=== PATIENT | male | born 1965 | race Caucasian/White ===

== ENCOUNTER → 2020-12-25 14:48 | Outpatient (CLI) | payer OTHER, MEDICAID, SELFPAY | PROVIDERS: Visit Provider Physician Assistant | DX: R31.9 Hematuria, unspecified (principal) | CPT/HCPCS: 81002; 87077; 87086; 87186 ==

== ENCOUNTER 2021-05-23 18:51 | Emergency (ER) | payer OTHER, MEDICAID, SELFPAY ==
[2021-05-23 19:01] VITALS: BP 182/104; PULSE 96; RESP 16; TEMP 37.2; O2SAT 96; BMI 25.8
--- NOTE | 2021-05-23 19:43 | PC.NURSE ---
Addendum entered by Mohini Smith R.N. 05/23/21 19:44: took the can and explained not to drink or eat while he is waiting. Original Note: pt opened a can of dr torres while waiting on lab to come.
[2021-05-23 20:02] LABS: Add Manual Diff / Slide Review NO; Basophils Absolute Auto 0 /uL (0-100); Basophils Percent Auto 0.5 % (0-2); Eosinophils Absolute Auto 300 /uL (0-450); Eosinophils Percent Auto 3.8 % (2-4); Hematocrit 46.8 % (41-53); Hemoglobin 16.2 g/dL (13.5-17.5); Lymphocytes Absolute Auto 1600 /uL (1100-4500); Lymphocytes Percent Auto 24.1 % (25-40); Mean Corpuscular HGB Conc 34.5 % (30-36); Mean Corpuscular Hemoglobin 31.6 PG (26-34); Mean Corpuscular Volume 91.6 fL (80-100); Monocytes Absolute Auto 500 /uL (0-900); Monocytes Percent Auto 7.1 % (3-14); Neutrophils Absolute Auto 4300 /uL (1500-7000); Neutrophils Percent Auto 64.5 % (50-75); Platelet Count 225 X10^3/uL (150-400); Red Blood Cell Count 5.11 X10^6/uL (4.5-5.9); Red Cell Distribution Width 12.5 % (11.6-14.8); White Blood Cell Count 6.7 X10^3/uL (4.5-11.0)
[2021-05-23 20:18] LABS: Alanine Aminotransferase 171 IU/L (<50); Albumin 3.9 g/dL (3.5-5.0); Albumin Globulin Ratio 1.1 (1.0-2.8); Alkaline Phosphatase 57 U/L (38-126); Aspartate Aminotransferase 100 IU/L (17-59); BUN Creatinine Ratio 23.6 (6-22); Bilirubin Total 1.1 mg/dL (0.2-1.3); Blood Urea Nitrogen 13 mg/dL (9-20); Calcium 9.3 mg/dL (8.4-10.2); Carbon Dioxide 28 mmol/L (22-32); Chloride 106 mmol/L (98-107); Estimated Glomerular Filt Rate > 60.0 mL/min (>60); Globulin 3.5 g/dL (1.7-4.1); Glucose 151 mg/dL (70-100); HEMOLYSIS < 15 (0-50); Lipase 125 U/L (23-300); Potassium 4.1 mmol/L (3.4-5.1); Sodium 138 mmol/L (137-145); Total Protein 7.4 g/dL (6.3-8.2)
--- NOTE | 2021-05-23 23:06 | ED.MALEGU ---
HPI - Male Genitourinary General Chief complaint: Urogenital-Male Stated complaint: states has a bad hernia Time Seen by Provider: 05/23/21 22:53 Source: patient Mode of arrival: Ambulatory History of Present Illness HPI Narrative: 56-year-old male smoker with a known left inguinal hernia presents stating that has hernia and his left groin would not go back in earlier today. He talk to his doctors and was encouraged to come to the emergency department for evaluation. He states he has pain particularly when moving or caring heavy objects. He denies any nausea, vomiting or fever. He has no issues with bowel movements or urination. Related Data Previous Rx's Medication Instructions Recorded amoxicillin 875 mg-potassium 1 tab PO BID #20 tab 12/25/20 clavulanate 125 mg tablet Allergies Allergy/AdvReac Type Severity Reaction Status Date / Time No Known Drug Allergies Allergy Verified 12/25/20 15:20 Review of Systems Review of Systems Narrative: GENERAL: Denies chills, fatigue, malaise, fever, sweats. HEENT: Denies sinus pain, ear pain, sore throat, difficulty swallowing, dizziness. RESPIRATORY: Denies dyspnea, cough, wheezing, hemoptysis, sputum. CARDIOVASCULAR: Denies chest pain, palpitations, orthopnea, edema, GASTROINTESTINAL: Denies nausea, vomiting, abdominal pain, diarrhea, constipation, melena. : See HPI MUSCULOSKELETAL: denies weakness, joint pain, or bony pain SKIN: Denies rash, skin lesions, or other NEUROLOGIC: Denies weakness, headache, numbness, change in speech, confusion, seizures, incoordination. PSYCHIATRIC: No concerning psychosocial issues. 12 point review of systems is negative except for those stated above Patient History Medical History Fractures Herpes (~1993) Mumps (~1970) Restless leg syndrome Stroke (~2018) Vision disorder Surgical History Anesthesia Open head wound Family History Father Diabetes mellitus History of heart disease Shingles Mother COPD (chronic obstructive pulmonary disease) Brother Suicide Family/Other No problems noted. Social History Smoking Status: Current some day smoker Smoking Status: Current some day smoker tobacco type: cigarettes alcohol intake frequency: 0-2 drinks per day Substance Use Type: marijuana Exam Narrative Exam Narrative: GEN: AOx3 and in mild distress EYES: Pupils are equal, round, and reactive to light and accommodation. Extraoccular muscles are intact bilaterally. There is no subconjunctival hemorrhage or exudate. CHEST: Lungs are clear to auscultation bilaterally and free of wheezes, rales, or rhonchi. Heart rate is regular rhythm, there are no murmurs, clicks, rubs, or gallops. There is no chest wall tenderness. ABD: Abdomen is soft and nontender. There is no guarding or rebound. Bowel sounds are normal in all 4 quadrants. There is no mass or organomegaly. : Examined groin first while laying, and then while standing. There is no evidence of incarcerated hernia. He states it went away while he was in the waiting room. EXT: Full painless ROM of all extremities with no loss of sensation or strength. SKIN: Warm, pink, and dry. No erythema or rash Initial Vital Signs Initial Vital Signs: Vital Signs Temperature 99 F 05/23/21 19:01 Pulse Rate 96 H 05/23/21 19:01 Respiratory Rate 16 05/23/21 19:01 Blood Pressure 182/104 H 05/23/21 19:01 Pulse Oximetry 96 05/23/21 19:01 Course Orders Ordered: ED Orders 05/23/21 19:17 EKG-12 Lead Stat 05/23/21 19:48 Complete Blood Count AUTO DIFF Stat Comprehensive Metabolic Panel Stat Lipase Stat Vital Signs Vital signs: Vital Signs - 8 hr 05/23/21 19:01 Temperature 99 F Pulse Rate 96 H Respiratory Rate 16 Blood Pressure 182/104 H Pulse Oximetry 96 MDM - Male Genitourinary Lab Data Result diagrams: 05/23/21 19:48 05/23/21 19:48 Labs: Lab Results 05/23/21 05/23/21 Range/Units 19:48 19:48 WBC 6.7 (4.5-11.0) X10^3/uL RBC 5.11 (4.5-5.9) X10^6/uL Hgb 16.2 (13.5-17.5) g/dL Hct 46.8 (41-53) % MCV 91.6 (80-100) fL MCH 31.6 (26-34) PG MCHC 34.5 (30-36) % RDW 12.5 (11.6-14.8) % Plt Count 225 (150-400) X10^3/uL Neut % (Auto) 64.5 (50-75) % Lymph % (Auto) 24.1 L (25-40) % Atkinson % (Auto) 7.1 (3-14) % Eos % (Auto) 3.8 (2-4) % Baso % (Auto) 0.5 (0-2) % Neut # (Auto) 4300 (8854-1761) /uL Lymph # (Auto) 1600 (6195-0064) /uL Atkinson # (Auto) 500 (0-900) /uL Eos # (Auto) 300 (0-450) /uL Baso # (Auto) 0 (0-100) /uL Sodium 138 (137-145) mmol/L Potassium 4.1 (3.4-5.1) mmol/L Chloride 106 (98-107) mmol/L Carbon Dioxide 28 (22-32) mmol/L BUN 13 (9-20) mg/dL Creatinine 0.55 L (0.66-1.25) mg/dL Estimated GFR > 60.0 (>60) mL/min BUN/Creatinine Ratio 23.6 H (6-22) Glucose 151 H (70-100) mg/dL Calcium 9.3 (8.4-10.2) mg/dL Total Bilirubin 1.1 (0.2-1.3) mg/dL AST 100 H (17-59) IU/L ALT 171 H (<50) IU/L Alkaline Phosphatase 57 (38-126) U/L Total Protein 7.4 (6.3-8.2) g/dL Albumin 3.9 (3.5-5.0) g/dL Globulin 3.5 (1.7-4.1) g/dL Albumin/Globulin Ratio 1.1 (1.0-2.8) Lipase 125 (23-300) U/L MDM Narrative Medical decision making narrative: Patient with report of an inguinal hernia of that had become stuck, he can normally push it in and no longer could. This resolved while in the waiting room, by the time I evaluated him there is no evidence of incarcerated hernia or other abnormality. He was asymptomatic, given extensive return precautions as well as contact information for the General surgery office. His questions have been answered to his apparent satisfaction Discharge Plan Departure Patient Disposition: Home Clinical Impression: Inguinal hernia Instructions: Groin Hernia -- Adult Activity Restrictions/Additional Instructions: *You have been diagnosed with [left inguinal hernia that thankfully has reduced for us tonight. As we discussed, if we are able to push your hernia back in there is no indication for an emergent surgical intervention. *What to do: *Please avoid lifting objects greater than 10-15 lb, standing for extended periods of time, straining on the toilet and other activities that increase intra-abdominal pressure which will cause the hernia to come out. * *Return to Emergency Department if you should have any new, worsening or concerning symptoms, such as [fever greater than 101 F, shaking chills, worsening pain, persistent vomiting or other bothersome symptoms] Prescriptions: No Action amoxicillin-pot clavulanate 875-125 mg tablet 1 tab PO BID Qty: 20 0RF Rx Instructions: Take one tablet with food twice daily for 10 days Referrals: Maria D Mcgovern MD [Physician] -
== END 2021-05-23 23:05 | disposition home or self-care (01) ==
PROVIDERS: Emergency Provider Emergency Medicine
DX: K40.90 Unilateral inguinal hernia, without obstruction or gangrene, not specified as recurrent (principal)
CPT/HCPCS: 36415; 80053; 83690; 85025; 99281; 99283